=== PATIENT | female | born 1965 | race Caucasian/White ===

== ENCOUNTER 2017-02-10 11:57 | Day surgery (SDC) | payer BC ==
[~2017-02-10] VITALS: Ht 170.2 cm; Wt 87.4 kg
[2017-02-10 12:38] VITALS: Ht 170.2 cm; Wt 87.4 kg
[2017-02-10] MEDS ORDERED: ESOM40CA PO (12:41)
[2017-02-10] MEDS ORDERED: METF500T4 PO (12:41)
[2017-02-10] MEDS ORDERED: ATOR20TA38 PO (12:41)
[2017-02-10] MEDS ORDERED: BIRTH CONTROL (12:41)
[2017-02-10 13:22] VITALS: BP 128/70; PULSE 79; RESP 15
--- NOTE | 2017-02-10 13:53 | OPPN ---
Date/Time of Note Date/Time of Note DATE: 02/10/17 TIME: 13:51 Operative Report Preoperative Diagnosis Screening colonoscopy Postoperative Diagnosis Colonoscopy and biopsy Operation/Procedure Performed Colonoscopy and biopsy Surgeon see signature line research study assistant None Anesthesia: moderate sedation (Versed 3 mg Demerol 25 mg fentanyl 75 mcg total time for moderate sedation 20 minutes) Estimated blood loss: none Transfusion Required none Specimen : Small polyp removed in sigmoid colon Grafts/Implants none Complications none JOSE PEÑA MD Feb 10, 2017 13:53
[2017-02-10] MEDS ORDERED: MIDAZOLAM 1 MG/ML 2 ML INJ ONE ×2 (14:02)
[2017-02-10] MEDS ORDERED: FENTAnyl 50 MCG/ML VIAL ONE (14:03)
[2017-02-10] MEDS ORDERED: MEPERIDINE 50 MG INJ ONE (14:03)
--- NOTE | 2017-02-10 20:39 | GILP ---
DATE OF PROCEDURE: 02/10/2017 PROCEDURE DONE: Colonoscopy, polyp removal from sigmoid colon. POSTOPERATIVE DIAGNOSIS: A 3 mm polyp in the sigmoid colon, removed. Otherwise, the rest of the co tamera normal. PROCEDURE IN DETAIL: After obtaining informed consent, the patient was sedated, monitored oximetry, EKG, blood pressure. I gave 3 mg IV Versed, 75 mcg of fentanyl, and 25 mg of Demerol in total for moderate sedation, 20 m inutes. Rectal exam done and then advanced an Olympus video colonoscope all the way to cecum. Cecu m was identified by ileocecal valve and appendiceal opening. Cecum, ascending colon, transverse col on, descending colon, sigmoid colon examined. In the sigmoid colon, a 3 mm polyp was found. This w as removed by biopsy forceps and then withdrew the scope back into the rectum. Rectosigmoid and rec darci normal. Retroflexion normal. Upon removal of scope, patient had no complication. Recommend fo llow up as outpatient and await biopsy report. Repeat colonoscopy in 5 years. Dictated By: JOSE HENRY Conf#: [id number] DID#: [id number] CC: Dr. Javid Cheek;*EndCC*
== END 2017-02-10 15:42 | disposition home or self-care (01) ==
LOC: GIL 11:57
PROVIDERS: ATTEND Internal Medicine
DX: Z12.11 Encounter for screening for malignant neoplasm of colon (principal); D12.5 Benign neoplasm of sigmoid colon; E78.5 Hyperlipidemia, unspecified; E11.9 Type 2 diabetes mellitus without complications; Z79.82 Long term (current) use of aspirin; Z79.84 Long term (current) use of oral hypoglycemic drugs
CPT/HCPCS: 45380; 82962; 88305; J2175; J2250; J3010; Z7610